=== PATIENT | female | born 1960 | race Caucasian/White ===

== ENCOUNTER → 2020-08-06 | Outpatient (CLI) | payer BC ==
--- NOTE | 2020-08-06 10:45 | RAD ---
PROCEDURE: MG BILAT SCREEN+RADHA HISTORY: The patient is 59 years old and is seen for Reason: screening mammogram / Spl. Instructions: / History: . COMPARISON: None. This is a baseline exam. TECHNIQUE: CC and MLO views of both breasts were obtained. Images were processed by the [employer] computer-aided detection system. DENSITY: There are scattered fibroglandular densities. FINDINGS: Right mammogram: Mass within the right posterior breast retroareolar on MLO view measures 1.5 x 1.2 c m and approximately 8.4 cm from the nipple. The mass is not well-seen on the cc view due to posterior depth. Possible small calcification within the mass. Left mammogram: No suspicious microcatheter location, mass or architectural distortion. IMPRESSION: 1. Right posterior breast mass. Recommend ultrasound to further evaluate. BI-RADS category 0 Incomplete: Needs additional imaging evaluation Patient entered into a reminder system for annual screening mammogram. Electronically signed by: Yonatan Andrews DO (08/06/2020 10:43 AM) [id number]
== END ==
LOC: EDBD 09:53 → MAMMO 09:53
PROVIDERS: ATTEND Obstetrics & Gynecology
DX: Z12.31 Encounter for screening mammogram for malignant neoplasm of breast (principal)
CPT/HCPCS: 77063; 77067

== ENCOUNTER → 2020-09-03 | Outpatient (CLI) | payer BC ==
--- NOTE | 2020-09-03 12:22 | RAD ---
EXAM: Right breast sonogram. HISTORY: 60-year-old female presents for evaluation of a right breast mass demonstrated on a mammogra m dated 08/06/2020. TECHNIQUE: Sonographic imaging of the right breast targeted to the site of mammographic abnormality a nd the right axilla was performed. COMPARISON: 08/06/2020. FINDINGS: There is a 1.2 cm solid hypoechoic mass with internal blood flow and possible wide morpholo gy at the 1:30 position of the right breast 11 cm from the nipple, corresponding with the mammographi c finding of concern. There are normal-appearing axillary lymph nodes which maintain reniform configu ration and fatty susan. IMPRESSION: 1. 1.2 cm mass at the 1:30 position of the right breast 11 cm from the nipple. Sonographic guided bio psy is recommended for definitive diagnosis. 2. BI-RADS Category 5: Highly suggestive of malignancy. These findings and recommendations were discussed with the patient and communicated to the nursing antoinette rueda at the referring physician office at 1200 hours on 09/03/2020. Electronically signed by: Binta Andrews MD (09/03/2020 12:20 PM) [id number]
== END ==
LOC: US 11:01
PROVIDERS: ATTEND Obstetrics & Gynecology
DX: N63.12 Unspecified lump in the right breast, upper inner quadrant (principal); R92.8 Other abnormal and inconclusive findings on diagnostic imaging of breast
CPT/HCPCS: 76641